=== PATIENT | female | born 1985 | race Caucasian/White ===

== ENCOUNTER 2016-11-05 14:44 | Outpatient (CLI) | payer OTHER ==
--- NOTE | 2016-11-06 16:11 | Ultrasound Report ---
BILATERAL CAROTID ARTERY ULTRASOUND: 11/05/2016 CLINICAL HISTORY: Patient has headaches with prominent and very pulsatile findings. TECHNIQUE: [employer] color Doppler ultrasound scanning system was utilized. Real- time sonographic vascular imaging was performed by the outboard motorboat operator through the carotid arteries utilizing both color-flow and Doppler spectral analysis. Multiple admitting representative static images were saved for review. Vessel PSV cm/sec 2D Plaque Estimate % ICA/CCA PSV EDV cm/sec % Stenosis RCCA Prox 114 -- RCCA Dist 142 23 RECA 77 -- RT BULB 118 -- .83 23 ROCIO Prox 117 -- .82 35 ROCIO Mid 94 -- .66 28 ROCIO Dist 94 -- .66 33 RVA 68 RVA flow direction: Antegrade. Vessel PSV cm/sec 2D Plaque Estimate % ICA/CCA PSV EDV cm/sec % Stenosis LCCA Prox 143 -- LCCA Dist 135 29 LECA 105 -- LFT BULB 100 -- .74 24 LICA Prox 79 -- .58 26 LICA Mid 85 -- .62 32 LICA Dist 96 -- .71 29 LVA 79 LVA flow direction: Antegrade. Velocity criteria are extrapolated from diameter data as defined by the Society of Radiologists in Ultrasound Consensus Conference Radiology 2003; 229; 340-346. Degree of Stenosis % ICA PSV cm/sec Plaque Estimate % ICA/CCA RSV Ratio ICA EDV cm/sec Normal < 125 None < 2.0 < 40 <50 < 125 < 50 < 2.0 < 40 50-69 125 - 130 >/= 50 2.0 - 4.0 40 - 100 >/= 70 but less than near occlusion > 230 >/= 50 > 4.0 > 100 Near occlusion High, low, or undetectable Visible lumen Variable Variable Total occlusion Undetectable No detectable lumen Not applicable Not applicable FINDINGS: Carotid arteries bilaterally show no significant plaque. No hemodynamically significant stenosis is detected in either carotid artery. Vertebral arteries show normal antegrade flow. IMPRESSION: NORMAL EXAMINATION. MTDD
== END 2016-11-05 14:45 | disposition home or self-care (01) ==
LOC: DI 14:44
DX: R51 Headache (principal)
CPT/HCPCS: 93880

== ENCOUNTER 2018-04-06 13:21 | Emergency (ER) | payer OTHER ==
[2018-04-06 13:30] VITALS: BP 141/82
--- NOTE | 2018-04-06 14:00 | ED Physician Documentation ---
PD HPI FEMALE - Stated complaint Stated Complaint: FEMALE - Chief complaint Chief Complaint: UTI - History obtained from History obtained from: Patient - History of Present Illness Timing - onset: Other (2 days of urinary frequency followed by severe dysuria, mild left flank pain but no fevers or nausea. Last UTI was about 8 years ago. No possibility of .) Review of Systems Constitutional: denies: Fever, Chills GI: denies: Abdominal Pain, Nausea, Vomiting : reports: Dysuria, Frequency PD PAST MEDICAL HISTORY - Present Medications Home Medications: Ambulatory Orders Medication Instructions Recorded Confirmed Phenazopyridine HCl [Pyridium] 200 mg PO TID PRN #6 tablet 04/06/18 Sulfamethoxazole/Trimethoprim 1 each PO BID #10 tablet 04/06/18 [Sulfamethoxazole-Tmp Ds Tablet] - Allergies Allergies/Adverse Reactions: Allergies Allergy/AdvReac Type Severity Reaction Status Date / Time azithromycin Allergy Unknown Verified 04/06/18 13:28 PD ED PE NORMAL - Vitals Vital signs reviewed: Yes - General General: Alert and oriented X 3, No acute distress - Abdomen Abdomen: Normal bowel sounds, Soft, Non tender - Back Back: No CVA TTP - Neuro Neuro: Alert and oriented X 3, Normal speech Results - Vitals Vitals: Vital Signs - 24 hr 04/06/18 13:28 Temperature 36.5 C Heart Rate 86 Respiratory 16 Rate Blood Pressure 141/82 H O2 Saturation 100 Oxygen O2 Source Room air - Labs Labs: Laboratory Tests 04/06/18 13:35 Urine Color DK. ORANGE Urine Clarity BLOODY Urine pH 6.5 Ur Specific [place] 1.020 Urine Protein Urine Glucose (UA) 250 H Urine Ketones Urine Occult Blood Urine Nitrite Urine Bilirubin COLOR INTERFERENCE Urine Urobilinogen Ur Leukocyte Esterase Urine RBC TNTC H Urine WBC >25 H Ur Squamous Epith Cells RARE Squamous Urine Bacteria Few Ur Microscopic Review INDICATED Urine Culture Comments INDICATED Departure - Departure Disposition: 01 Home, Self Care Clinical Impression: Cystitis Condition: Good Record reviewed to determine appropriate education?: Yes Instructions: ED UTI Cystitis Female Prescriptions: Phenazopyridine HCl [Pyridium] 200 mg PO TID PRN #6 tablet PRN Reason: dysuria Sulfamethoxazole/Trimethoprim [Sulfamethoxazole-Tmp Ds Tablet] 1 each PO BID #10 tablet Comments: Your blood pressure was elevated today on check into the emergency department. This does not mean that you have hypertension, it is a common phenomenon to come to the emergency department and have elevated blood pressure. I recommend that you see your primary care physician within the week to have it rechecked when you are feeling better. Discharge Date/Time: 04/06/18 14:26
[2018-04-06 14:04] LABS: GLUCOSE, URINE (UA) 250 mg/dL (NEGATIVE); PH,URINE 6.5 PH (5.0-7.5)
[2018-04-06 14:05] LABS: CLARITY,URINE BLOODY (CLEAR)
[2018-04-06 14:07] LABS: BILIRUBIN,URINE COLOR INTERFERENCE (NEGATIVE)
[2018-04-06] MEDS ORDERED: SULFAMETH/TRIMETH DS 800/160 MG TABLET PO STA (14:15)
[2018-04-06] MEDS ORDERED: PHENAZOPYRIDINE 100 MG TABLET PO STA (14:16)
[2018-04-06 14:32] LABS: BACTERIA,URINE Few /HPF (None Seen); RBC,URINE TNTC /HPF (0-5); SQUAMOUS EPITHELIAL CELL,UR RARE Squamous (<= Few)
== END 2018-04-06 14:26 | disposition home or self-care (01) ==
LOC: ED 13:21
DX: N30.90 Cystitis, unspecified without hematuria (principal); R03.0 Elevated blood-pressure reading, without diagnosis of hypertension; B96.20 Unspecified Escherichia coli [E. coli] as the cause of diseases classified elsewhere
CPT/HCPCS: 81001; 87077; 87086; 87181; 99283; A9270; 81003

== ENCOUNTER 2018-08-20 08:55 | Emergency (ER) | payer OTHER ==
[2018-08-20 09:13] VITALS: BP 134/77
[2018-08-20] MEDS ORDERED: diazePAM 5 MG TABLET PO STA (10:21)
[2018-08-20] MEDS ORDERED: HYDROcod/ACETAM 5/325 MG TABLET PO STA (10:21)
--- NOTE | 2018-08-20 10:24 | ED Physician Documentation ---
History of Present Illness - Stated complaint Stated Complaint: NECK PAIN - Chief complaint Chief Complaint: General - Additonal information Additional information: 32-year-old female presents the emergency department with complaints of pain in her paraspinal muscles. The patient reports a sharp spasming pain. The patient did experience some tingling into her right arm this morning. The patient denies any motor weakness or recent trauma. No reports of fever or history of IV drug use. The patient has been moving boxes recently. No other associated symptoms. Some improvement with Motrin Review of Systems Constitutional: denies: Fever, Chills Eyes: denies: Discharge Ears: denies: Ear pain Nose: denies: Congestion Throat: denies: Sore throat Respiratory: denies: Dyspnea GI: denies: Abdominal Pain Skin: denies: Rash Musculoskeletal: reports: Neck pain. denies: Back pain Immunocompromised: denies: Chemotherapy PD PAST MEDICAL HISTORY - Past Medical History Past Medical History: No Cardiovascular: None Respiratory: None Neuro: None Endocrine/Autoimmune: None GI: None OFFICE MACHINE TECHNICIAN: None : None HEENT: None Psych: None Musculoskeletal: None Derm: None - Past Surgical History Past Surgical History: Yes Ortho: ACL reconstruction /OFFICE MACHINE TECHNICIAN: Tubal ligation HEENT: Tonsil/Adenoidectomy - Present Medications Home Medications: Ambulatory Orders Medication Instructions Recorded Confirmed diazePAM [Valium] 5 mg PO TID PRN #15 tablet 08/20/18 - Allergies Allergies/Adverse Reactions: Allergies Allergy/AdvReac Type Severity Reaction Status Date / Time azithromycin Allergy Unknown Verified 08/20/18 09:13 - Social History Does the pt smoke?: No Smoking Status: Never smoker Does the pt drink ETOH?: Yes Does the pt have substance abuse?: No - Immunizations Immunizations are current?: Yes - POLST Patient has POLST: No PD ED PE NORMAL - General General: Alert and oriented X 3, No acute distress - HEENT HEENT: Atraumatic, PERRL, EOMI, Ears normal - Neck Neck: No bony TTP, Other (The patient has tenderness along the paraspinal muscles in the area some slight spasm. There is no crepitus. There is no skin changes. There is no bogginess or evidence of abscess.) - Derm Derm: Normal color - Extremities Extremities: No deformity, No tenderness to palpate, Normal ROM s pain, No edema - Neuro Neuro: Alert and oriented X 3, No motor deficit, Normal speech Results - Vitals Vitals: Vital Signs - 24 hr 08/20/18 09:10 Temperature 36.7 C Heart Rate 90 Respiratory 14 Rate Blood Pressure 134/77 H O2 Saturation 98 Oxygen O2 Source Room air PD MEDICAL DECISION MAKING - ED course ED course: The patient's symptoms seem to represent a musculoskeletal etiology. There is no clinical findings to suggest cauda equina or epidural abscess and presently an emergent MRI is not warranted. The patient appears appropriate for discharge and ongoing outpatient management. I recommended physical therapy and possibly an outpatient MRI. The patient will return to the emergency department for any worsening or any concerns Departure - Departure Disposition: Home, Self Care Clinical Impression: Cervical muscle strain Qualifiers: Encounter type: initial encounter Qualified Code(s): S16.1XXA - Strain of muscle, fascia and tendon at neck level, initial encounter Condition: Good Instructions: ED Neck Back Pain General, ED Spasm Neck No Injury Follow-Up: JANIA DUMONT [Primary Care Provider] - (Please asked for your primary care to arrange for outpatient physical therapy. If your symptoms not improving you may need a referral for an MRI to further assess your symptoms) Prescriptions: diazePAM [Valium] 5 mg PO TID PRN #15 tablet PRN Reason: Spasms Comments: Please return to the emergency department for any worsening or any concerns
== END 2018-08-20 10:46 | disposition home or self-care (01) ==
LOC: ED 08:55
DX: S16.1XXA Strain of muscle, fascia and tendon at neck level, initial encounter (principal); X50.0XXA Overexertion from strenuous movement or load, initial encounter; Y93.89 Activity, other specified
CPT/HCPCS: 99283; A9270